=== PATIENT | male | born 1960 | race Caucasian/White ===

== ENCOUNTER → 2021-08-29 11:26 | Outpatient (BNVA) | payer MEDICARE, MEDICAID, SELFPAY | PROVIDERS: Family Provider Family Medicine; PCP Family Medicine; Visit Provider Family Medicine | DX: Z20.822 Contact with and (suspected) exposure to COVID-19 (principal); U07.1 COVID-19 | CPT/HCPCS: 87400; 87635 ==

== ENCOUNTER 2023-03-06 09:45 | Emergency (ER) | payer MEDICARE, MEDICAID, SELFPAY ==
[2023-03-06 09:51] VITALS: BP 145/88; PULSE 63; RESP 18; TEMP 36.7; O2SAT 93
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
== END 2023-03-06 10:52 | disposition home or self-care (01) ==
PROVIDERS: Emergency Provider Emergency Medicine; PCP Family Medicine
DX: S51.011A Laceration without foreign body of right elbow, initial encounter (principal); W19.XXXA Unspecified fall, initial encounter; Y93.16 Activity, rowing, canoeing, kayaking, rafting and tubing
CPT/HCPCS: 12002; 99283